=== PATIENT | male | born 1945 | race Asian ===

== ENCOUNTER 2017-08-14 05:11 | Inpatient (IN) | payer BC, OTHER ==
--- NOTE | 2017-08-14 05:45 | PDOC ---
History of Present Illness - General History Source: Patient Exam Limitations: No Limitations - History of Present Illness Initial Comments: 08/14/17 06:00 The patient is a 72 year old male with a significant past medical history of HTN , HLD, diabetes, s/p stent x 1 who presents to the ED with complaints of epigastric pain since earlier today. The patient reports epigastric pain that he describes as heartburn-like sensation for several hours. Patient also reports nausea and generalized weakness associated with present symptoms. He states he ate a normal breakfast, normal lunch, and bread for dinner. Patient notes his last bowel movement was yesterday, and normal. Denies abdominal distension or vomiting. Denies dysuria or change in urinary output. Denies fever or chills. Denies chest pain or shortness of breath. Denies any other symptoms. <Enma Jefferson - Last Filed: 08/14/17 06:00> <Arron Driscoll - Last Filed: 08/14/17 11:51> <Shari Mckeon - Last Filed: 08/14/17 21:33> - General Chief Complaint: Pain, Acute Stated Complaint: ABDOMINAL PAIN Time Seen by Provider: 08/14/17 05:23 Past History <Enma Jefferson - Last Filed: 08/14/17 06:00> <Arron Driscoll - Last Filed: 08/14/17 11:51> - Past Medical History Diabetes: Yes Disorders: Yes (bladder stone) HTN: Yes Hypercholesterolemia: Yes Thyroid Disease: No - Surgical History Orthopedic Surgery: No - Suicide/Smoking/Psychosocial Hx Smoking History: Former smoker Have you smoked in the past 12 months: No If you are a former smoker, when did you quit?: 13 years ago Information on smoking cessation initiated: No Hx Alcohol Use: No Drug/Substance Use Hx: No Substance Use Type: None <Shari Mckeon - Last Filed: 08/14/17 21:33> - Past Medical History Allergies/Adverse Reactions: Allergies Allergy/AdvReac Type Severity Reaction Status Date / Time No Known Drug Allergies Allergy Verified 08/14/17 05:28 Home Medications: Ambulatory Orders Amlodipine Besylate [Norvasc -] 10 mg PO DAILY 08/14/17 Aspirin [ASA -] 81 tablet PO DAILY 08/14/17 Atorvastatin Ca [Lipitor] 40 mg PO HS 08/14/17 Cholecalciferol (Vitamin D3) [Vitamin D3] 2,000 unit PO DAILY 08/14/17 Clopidogrel Bisulfate [Plavix -] 75 mg PO DAILY 08/14/17 Isosorbide Mononitrate [Isosorbide Mononitrate ER] 30 mg PO DAILY 08/14/17 Metformin HCl [Glucophage] 1,000 mg PO BID 08/14/17 Metoprolol Succinate [Toprol Xl -] 50 mg PO DAILY 08/14/17 Valsartan/Hydrochlorothiazide [Valsartan-Hctz 160-25 mg Tab] 1 each PO DAILY Review of Systems - Review of Systems Able to Perform ROS?: Yes Comments:: 08/14/17 06:01 CONSTITUTIONAL: + generalized weakness No reported: Fever, Chills, Diaphoresis,Malaise, Loss of Appetite HEENT: No reported: Rhinorrhea, Nasal Congestion, Throat Pain, Throat Swelling, Difficulty Swallowing, Mouth Swelling, Ear Pain, Eye Pain, Visual Changes CARDIOVASCULAR: No reported: Chest Pain, Syncope, Palpitations, Irregular Heart Rate, Lightheadedness, Peripheral Edema RESPIRATORY: No reported: Cough, Shortness of Breath, SOB with Exertion, Orthopnea, Wheezing , Stridor, Hemoptysis GASTROINTESTINAL: + epigastric pain, nausea No reported: Abdominal Distension, Vomiting, Diarrhea, Constipation, Melena, Hematochezia GENITOURINARY: No reported: Dysuria, Frequency, Urgency, Hesitancy, Flank Pain, Genital Pain MUSCULOSKELETAL: No reported: Myalgia, Arthralgia, Joint Swelling, Back pain, Neck Pain SKIN: No reported: Rash, Itching, Pallor HEMEATOLOGIC/IMMUNOLOGIC: No reported: Easy Bleeding, Easy Bruising, Lymphadenopathy, Frequent infections ENDOCRINE: No reported: Unexplained Weight Gain, Unexplained Weight Loss, Heat Intolerance , Cold Intolerance NEUROLOGIC: No reported: Headache, Focal Weakness, Paresthesias, Vertigo, Lightheadedness, Unsteady Gait, Seizure, Mental Status Changes, Incontinence PSYCHIATRIC: No reported: Anxiety, Depression All Other Systems: Reviewed and Negative <Enma Jefferson - Last Filed: 08/14/17 06:00> *Physical Exam - Vital Signs Last Vital Signs Temp Pulse Resp BP Pulse Ox 97.6 F 72 20 164/82 98 08/14/17 05:28 08/14/17 05:28 08/14/17 05:28 08/14/17 05:28 08/14/17 05:28 - Physical Exam Comments: 08/14/17 06:01 GENERAL: Well developed, well nourished. Awake and alert. No acute distress. HEENT: Normocephalic, atraumatic. PERRLA, EOMI. No conjunctival pallor. Sclera are non- icteric. Moist mucous membranes. Oropharynx is clear. NECK: Supple. Full ROM. No JVD. Carotid pulses 2+ and symmetric, without bruits. No thyromegaly. No lymphadenopathy. CARDIOVASCULAR: Regular rate and rhythm. No murmurs, rubs, or gallops. Distal pulses are 2+ and symmetric. PULMONARY: No evidence of respiratory distress. Lungs clear to auscultation bilaterally. No wheezing, rales or rhonchi. ABDOMINAL: + gassy bowel sounds Soft. Non-tender. Non-distended. No rebound or guarding. No organomegaly. MUSCULOSKELETAL Normal range of motion at all joints. No bony deformities or tenderness. No CVA tenderness. EXTREMITIES: No cyanosis. No clubbing. No edema. No calf tenderness. SKIN: Warm and dry. Normal capillary refill. No rashes. No jaundice. NEUROLOGICAL: Alert, awake, appropriate. Cranial nerves 2-12 intact. No deficits to light touch and temperature in face, upper extremities and lower extremities. No motor deficits in the in face, upper extremities and lower extremities. Normoreflexic in the upper and lower extremities. Normal speech. Toes are down- going bilaterally. Gait is normal without ataxia. PSYCHIATRIC: Cooperative. Good eye contact. Appropriate mood and affect. <Enma Jefferson - Last Filed: 08/14/17 06:00> - Vital Signs Last Vital Signs Temp Pulse Resp BP Pulse Ox 97.6 F 72 20 164/82 98 08/14/17 05:28 08/14/17 05:28 08/14/17 05:28 08/14/17 05:28 08/14/17 05:28 <Arron Driscoll - Last Filed: 08/14/17 11:51> - Vital Signs Last Vital Signs Temp Pulse Resp BP Pulse Ox 97.6 F 72 20 164/82 98 08/14/17 05:28 08/14/17 05:28 08/14/17 05:28 08/14/17 05:28 08/14/17 05:28 <LindaShari - Last Filed: 08/14/17 21:33> ED Treatment Course - LABORATORY CBC & Chemistry Diagram: 08/14/17 06:13 08/14/17 06:13 - ADDITIONAL ORDERS Additional order review: Laboratory Results 08/14/17 08/14/17 08/14/17 10:30 10:00 06:13 PT with INR INR Sodium 140 Potassium 3.7 Chloride 100 Carbon Dioxide 29 Anion Gap 11 BUN 19 H D Creatinine 1.2 D Creat Clearance w eGFR 59.68 Random Glucose 125 H D Calcium 10.4 H Total Bilirubin 0.5 D AST 24 ALT 35 Alkaline Phosphatase 78 Creatine Kinase Cancelled 403 H Creatine Kinase Index 1.7 CK-MB (CK-2) 7.210 H Troponin I Cancelled < 0.02 Total Protein 7.5 Albumin 3.9 Total Amylase 83 Lipase 180 Urine Color Straw Urine Appearance Clear Urine pH 6.0 Urine Protein Negative Urine Glucose (UA) Negative Urine Ketones Negative Urine Blood 1+ H Urine Nitrite Negative Urine Bilirubin Negative Urine Urobilinogen Negative Urine RBC None Urine WBC 1 Ur Epithelial Cells Rare Urine Mucus Rare 08/14/17 06:13 PT with INR 10.60 INR 0.94 Sodium Potassium Chloride Carbon Dioxide Anion Gap BUN Creatinine Creat Clearance w eGFR Random Glucose Calcium Total Bilirubin AST ALT Alkaline Phosphatase Creatine Kinase Creatine Kinase Index CK-MB (CK-2) Troponin I Total Protein Albumin Total Amylase Lipase Urine Color Urine Appearance Urine pH Urine Protein Urine Glucose (UA) Urine Ketones Urine Blood Urine Nitrite Urine Bilirubin Urine Urobilinogen Urine RBC Urine WBC Ur Epithelial Cells Urine Mucus 08/14/17 06:13 RBC 5.38 MCV 86.0 MCHC 33.6 RDW 14.7 MPV 6.7 L Neutrophils % 85.4 H Lymphocytes % 8.2 Monocytes % 5.7 Eosinophils % 0.2 Basophils % 0.5 - Medications Given in the ED: ED Medications Discontinued Medications Generic Name Dose Route Start Last Admin Trade Name Freq PRN Reason Stop Dose Admin Famotidine/Sodium Chloride 50 mls @ 100 mls/hr 08/14/17 05:56 08/14/17 06:39 Pepcid 20 Mg Premixed Ivpb - IVPB 08/14/17 06:25 100 mls/hr ONCE ONE Administration Morphine Sulfate 2 mg 08/14/17 05:56 08/14/17 06:39 Morphine Injection - IVPUSH 08/14/17 05:57 2 mg ONCE ONE Administration Ondansetron HCl 4 mg 08/14/17 05:56 08/14/17 06:39 Zofran Injection IVPB 08/14/17 05:57 4 mg ONCE ONE Administration Sodium Chloride 500 ml 08/14/17 05:56 08/14/17 06:39 Normal Saline - IV 08/14/17 05:57 500 ml ONCE ONE Administration - Additional Consults Time Called: 11:45 Consult/PCP: Dr. Bryant Pagan, Cardiology <Arron Driscoll - Last Filed: 08/14/17 11:51> - LABORATORY CBC & Chemistry Diagram: 08/14/17 06:13 08/14/17 06:13 <Shari Mckeon - Last Filed: 08/14/17 21:33> Medical Decision Making - Medical Decision Making 08/14/17 06:17 Pt comes with mid abd pain that bothered him since Sat evening. Kept him up all night. Pt ate only a little bread last night. Pt had a normal breakfast and lunch. Pt has no fever and no chills. Pt appears well. He has no chest pain and no back pain and he has no diaphoresis. He has HTN and DM and cardiac stents for which he takes asa and plavix. Pt will get labs and he will drink oral contrast for a CT scan of abd/ pelvis due at 8AM Pt will be signed out to the day ER time. <Shari Mckeon - Last Filed: 08/14/17 21:33> *DC/Admit/Observation/Transfer - Attestations Scribe Attestion: 08/14/17 06:01 Documentation prepared by Enma Jefferson, acting as medical investigator for Shari Mckeon MD <Enma Jefferson - Last Filed: 08/14/17 06:00> <Arron Driscoll - Last Filed: 08/14/17 11:51> <Shari Mckeon - Last Filed: 08/14/17 21:33> Diagnosis at time of Disposition: Chest pain - Referrals
[2017-08-14] MEDS ORDERED: morphine CARPU-JECT 2 MG/1 ML DISP.SYRIN IVPUSH ONE (05:56)
[2017-08-14] MEDS ORDERED: FAMOTIDINE 20 MG/50 ML IVPB 50 ML IVPB ONE ×2 (05:56→06:24)
[2017-08-14] MEDS ORDERED: SODIUM CHLORIDE 0.9% 500 ML INFUS.BAG IV ONE (05:56)
[2017-08-14] MEDS ORDERED: ONDANSETRON 4 MG/2 ML VIAL IVPB ONE (05:56)
[2017-08-14] MEDS ORDERED: morphine CARPU-JECT 2 MG/1 ML DISP.SYRIN ONE (06:23)
[2017-08-14] MEDS ORDERED: ONDANSETRON 4 MG/2 ML VIAL ONE (06:23)
[2017-08-14 06:28] LABS: BASOPHIL 0.5 % (0-2.0); EOSINOPHIL 0.2 % (0-4.5); MCH 28.9 pg (25.7-33.7); MCHC 33.6 g/dl (32.0-35.9); MEAN PLT VOLUME 6.7 fl (7.5-11.1); NEUTROPHILS 85.4 % (42.8-82.8); PLATELET COUNT 323 K/MM3 (134-434); RDW 14.7 % (11.9-15.9); WHITE BLOOD COUNT 11.1 K/mm3 (4.0-10.0)
[2017-08-14 06:41] LABS: INR 0.94 (0.82-1.09); PROTHROMBIN TIME (PATIENT) 10.6 SEC (9.98-11.88)
[2017-08-14 06:51] LABS: ALBUMIN 3.9 g/dl (3.4-5.0); ALK PHOS 78 U/L (45-117); AMYLASE 83 U/L (25-115); ANION GAP 11 (8-16); BILIRUBIN,TOTAL 0.5 mg/dL (0.2-1.0); CALCIUM 10.4 mg/dL (8.5-10.1); CO2 29 mmol/L (21-32); CREATININE 1.2 mg/dL (0.7-1.3); GLUCOSE,RANDOM 125 mg/dL (74-106); SGOT/AST 24 U/L (15-37); SGPT/ALT 35 U/L (12-78); TOT PROT 7.5 g/dl (6.4-8.2)
[2017-08-14 10:11] LABS: URINE APPEARANCE CLEAR; URINE BILIRUBIN NEGATIVE (NEGATIVE); URINE BLOOD 1+ (NEGATIVE); URINE COLOR STRAW; URINE GLUCOSE (UA) NEGATIVE (NEGATIVE); URINE KETONE NEGATIVE (NEGATIVE); URINE NITRITE NEGATIVE (NEGATIVE); URINE PROTEIN NEGATIVE (NEGATIVE); URINE UROBILINOGEN NEGATIVE mg/dL (0.2-1.0)
[2017-08-14 10:14] LABS: URINE MUCUS RARE; URINE WBC 1 /hpf (3-5)
[2017-08-14 11:07] LABS: CPK 403 IU/L (39-308); TROPONIN I < 0.02 ng/ml (0.00-0.05)
[2017-08-14] MEDS ORDERED: ASPIRIN 81 MG CHEWABLE TABLETS PO ONE (12:31)
--- NOTE | 2017-08-14 12:35 | PDOC ---
*Physical Exam - Vital Signs Last Vital Signs Temp Pulse Resp BP Pulse Ox 97.6 F 72 20 164/82 98 08/14/17 05:28 08/14/17 05:28 08/14/17 05:28 08/14/17 05:28 08/14/17 05:28 Heart Score/ECG Review - History History: Slightly suspicious - Electrocardiogram EKG: Non specific repolarization disturbance - Age Age: >/= 65 - Risk Factors Based on the list above the patient has:: >/=3 risk factors or Hx atherosclerotic disease - Troponin Troponin: </= normal limit - Score Heart Score - Total: 5 #1 ECG reviewed & interpreted by me at: 11:20 08/14/17 12:33 NSR 62, no std/jesica, T wave flat I, avL, V5-V6, QTC 379 msec ED Treatment Course - LABORATORY CBC & Chemistry Diagram: 08/14/17 06:13 08/14/17 06:13 - ADDITIONAL ORDERS Additional order review: Laboratory Results 08/14/17 08/14/17 08/14/17 10:30 10:00 06:13 PT with INR INR Sodium 140 Potassium 3.7 Chloride 100 Carbon Dioxide 29 Anion Gap 11 BUN 19 H D Creatinine 1.2 D Creat Clearance w eGFR 59.68 Random Glucose 125 H D Calcium 10.4 H Total Bilirubin 0.5 D AST 24 ALT 35 Alkaline Phosphatase 78 Creatine Kinase Cancelled 403 H Creatine Kinase Index 1.7 CK-MB (CK-2) 7.210 H Troponin I Cancelled < 0.02 Total Protein 7.5 Albumin 3.9 Total Amylase 83 Lipase 180 Urine Color Straw Urine Appearance Clear Urine pH 6.0 Urine Protein Negative Urine Glucose (UA) Negative Urine Ketones Negative Urine Blood 1+ H Urine Nitrite Negative Urine Bilirubin Negative Urine Urobilinogen Negative Urine RBC None Urine WBC 1 Ur Epithelial Cells Rare Urine Mucus Rare 08/14/17 06:13 PT with INR 10.60 INR 0.94 Sodium Potassium Chloride Carbon Dioxide Anion Gap BUN Creatinine Creat Clearance w eGFR Random Glucose Calcium Total Bilirubin AST ALT Alkaline Phosphatase Creatine Kinase Creatine Kinase Index CK-MB (CK-2) Troponin I Total Protein Albumin Total Amylase Lipase Urine Color Urine Appearance Urine pH Urine Protein Urine Glucose (UA) Urine Ketones Urine Blood Urine Nitrite Urine Bilirubin Urine Urobilinogen Urine RBC Urine WBC Ur Epithelial Cells Urine Mucus 08/14/17 06:13 RBC 5.38 MCV 86.0 MCHC 33.6 RDW 14.7 MPV 6.7 L Neutrophils % 85.4 H Lymphocytes % 8.2 Monocytes % 5.7 Eosinophils % 0.2 Basophils % 0.5 - Medications Given in the ED: ED Medications Discontinued Medications Generic Name Dose Route Start Last Admin Trade Name Judson PRN Reason Stop Dose Admin Famotidine/Sodium Chloride 50 mls @ 100 mls/hr 08/14/17 05:56 08/14/17 06:39 Pepcid 20 Mg Premixed Ivpb - IVPB 08/14/17 06:25 100 mls/hr ONCE ONE Administration Morphine Sulfate 2 mg 08/14/17 05:56 08/14/17 06:39 Morphine Injection - IVPUSH 08/14/17 05:57 2 mg ONCE ONE Administration Ondansetron HCl 4 mg 08/14/17 05:56 08/14/17 06:39 Zofran Injection IVPB 08/14/17 05:57 4 mg ONCE ONE Administration Sodium Chloride 500 ml 08/14/17 05:56 08/14/17 06:39 Normal Saline - IV 08/14/17 05:57 500 ml ONCE ONE Administration - Additional Consults Time Called: 11:45 Consult/PCP: Dr. Bryant Pagan, Cardiology Medical Decision Making - Medical Decision Making 08/14/17 12:33 Sign-out received from outgoing Emergency Physician Dr. Mckeon Pt interviewed and examined Ancillary studies reviewed Case discussed in detail with oncoming Emergency Physician including history, physical exam and ancillary studies. Labs and CT reviewed. No acute findings. I had talked with the patient. The patient was concerned for an AK given his stent history. Initial trop negative. I had spoken to Dr. Rivas (covering for Dr. olivarez) Recommends observation, serial troponins Case discussed with hospitalist. Admitted to tele obs *DC/Admit/Observation/Transfer Diagnosis at time of Disposition: Chest pain Qualifiers: Chest pain type: unspecified Qualified Code(s): R07.9 - Chest pain, unspecified ; R07.9 - Chest pain, unspecified - Discharge Dispostion Condition at time of disposition: Stable Admit: Yes - Referrals Referrals: Lyndon Lobo MD [Primary Care Provider] - - Patient Instructions - Post Discharge Activity
[2017-08-14] MEDS ORDERED: ASPIRIN COATED 81 MG TABLET.EC ONE (13:22)
--- NOTE | 2017-08-14 13:45 | HP ---
CHIEF COMPLAINT: epigastric pain, non radiating, unrelieved PCP: Dr. Alexis, manager public HISTORY OF PRESENT ILLNESS: The patient is a 72 year old male with a significant past medical history of HTN , HLD, diabetes, s/p stent x 1 who presents to the ED with complaints of epigastric pain that started 6pm yesterday and has since persisted. He describes the pain as "heart burn like burning sensation" but it does not radiate. He is concerned that it may be heart related since he has a stent and a past cardiac history but denies any chest pain or shortness of breath. Patient notes his last bowel movement was yesterday, and normal. He further denies any abdominal distension or vomiting. Denies dysuria or change in urinary output. Patient has a cardiac stents for which he takes ASA 81mg in the evenings and plavix in the a.m. ER course was notable for: (1) ASA 324mg given x 1 (2) CT chest/abd negative, no acute pathology (3) Trops negative x 2 Recent Travel: PAST MEDICAL HISTORY: PAST SURGICAL HISTORY: cardiac stent x 1 Social History: Smoking: former smoker > 10 years ago Alcohol: denies Drugs: denies Family History: Allergies No Known Drug Allergies Allergy (Verified 08/14/17 05:28) HOME MEDICATIONS: Home Medications Medication Instructions Recorded Amlodipine Besylate [Norvasc -] 10 mg PO DAILY 08/14/17 Aspirin [ASA -] 81 tablet PO DAILY 08/14/17 Atorvastatin Ca [Lipitor] 40 mg PO HS 08/14/17 Cholecalciferol (Vitamin D3) 2,000 unit PO DAILY 08/14/17 [Vitamin D3] Clopidogrel Bisulfate [Plavix -] 75 mg PO DAILY 08/14/17 Isosorbide Mononitrate [Isosorbide 30 mg PO DAILY 08/14/17 Mononitrate ER] Metformin HCl [Glucophage] 1,000 mg PO BID 08/14/17 Metoprolol Succinate [Toprol Xl -] 50 mg PO DAILY 08/14/17 Valsartan/Hydrochlorothiazide 1 each PO DAILY 08/14/17 [Valsartan-Hctz 160-25 mg Tab] REVIEW OF SYSTEMS CONSTITUTIONAL: Absent: fever, chills, diaphoresis, generalized weakness, malaise, loss of appetite, weight change HEENT: Absent: rhinorrhea, nasal congestion, throat pain, throat swelling, difficulty swallowing, mouth swelling, ear pain, eye pain, visual changes CARDIOVASCULAR: Absent: chest pain, syncope, palpitations, irregular heart rate, lightheadedness , peripheral edema RESPIRATORY: Absent: cough, shortness of breath, dyspnea with exertion, orthopnea, wheezing, stridor, hemoptysis GASTROINTESTINAL: Absent: abdominal pain, abdominal distension, nausea, vomiting, diarrhea, constipation, melena, hematochezia GENITOURINARY: Absent: dysuria, frequency, urgency, hesitancy, hematuria, flank pain, genital pain MUSCULOSKELETAL: Absent: myalgia, arthralgia, joint swelling, back pain, neck pain SKIN: Absent: rash, itching, pallor HEMATOLOGIC/IMMUNOLOGIC: Absent: easy bleeding, easy bruising, lymphadenopathy, frequent infections ENDOCRINE: Absent: unexplained weight gain, unexplained weight loss, heat intolerance, cold intolerance NEUROLOGIC: Absent: headache, focal weakness or paresthesias, dizziness, unsteady gait, seizure, mental status changes, bladder or bowel incontinence PSYCHIATRIC: Absent: anxiety, depression, suicidal or homicidal ideation, hallucinations. PHYSICAL EXAMINATION GENERAL: Awake, alert, and fully oriented, in no acute distress. HEAD: Normal with no signs of trauma. EYES: Pupils equal, round and reactive to light, extraocular movements intact, sclera anicteric, conjunctiva clear. No lid lag. EARS, NOSE, THROAT: Ears normal, nares patent, oropharynx clear without exudates. Moist mucous membranes. NECK: Normal range of motion, supple without lymphadenopathy, JVD, or masses. LUNGS: Breath sounds equal, clear to auscultation bilaterally. No wheezes, and no crackles. No accessory muscle use. HEART: Regular rate and rhythm, normal S1 and S2 without murmur, rub or gallop. ABDOMEN: Soft, nontender, not distended, normoactive bowel sounds, no guarding, no rebound, no masses. No hepatomegaly or splenomegaly. MUSCULOSKELETAL: Normal range of motion at all joints. No bony deformities or tenderness. No CVA tenderness. UPPER EXTREMITIES: 2+ pulses, warm, well-perfused. No cyanosis. No clubbing. No peripheral edema. LOWER EXTREMITIES: 2+ pulses, warm, well-perfused. No calf tenderness. No peripheral edema. NEUROLOGICAL: Cranial nerves II-XII intact. Normal speech. Normal gait. PSYCHIATRIC: Cooperative. Good eye contact. Appropriate mood and affect. SKIN: Warm, dry, normal turgor, no rashes or lesions noted, normal capillary refill. ASSESSMENT/PLAN: The patient is a 72 year old male with a significant past medical history of HTN , HLD, diabetes, s/p stent x 1 who presents to the ED with complaints of epigastric pain that started 6pm yesterday and has since persisted. He describes the pain as "heart burn like burning sensation" but it does not radiate. He is concerned that it may be heart related since he has a stent and a past cardiac history but denies any chest pain or shortness of breath. Patient notes his last bowel movement was yesterday, and normal. He further denies any abdominal distension or vomiting. Denies dysuria or change in urinary output. Patient has a cardiac stents for which he takes ASA 81mg in the evenings and plavix in the a.m. Cardiology: Abdominal Pain, Epigastric pain, rule out ACS A/P: Serial troponins, EKG Continue ASA, Plavix Cardiac monitoring Cardiology to evaluate Pepcid for epigastric pain TSH CAD/hx of cardiac stents A/P: on ASA 81mg, Plavix home dose Hyperlipidemia Lipid panel for a.m. Hypothyroidsm A/P: TSH for am. Hypertension, chronic/well controlled A/P: On home meds of Metoprolol, Norvasc, Isosorbide, Valsartan/HCTZ Continue home meds, monitor BP GI: Abdominal pain/epigastric pain, now resolved CT/abd/pelvis, no acute pathology On Pepcid Disposition. Requires observation. full code. Visit type - Emergency Visit Emergency Visit: Yes ED Registration Date: 08/14/17 Care time: The patient presented to the Emergency Department on the above date and was hospitalized for further evaluation of their emergent condition. - New Patient This patient is new to me today: Yes Date on this admission: 08/14/17 - Critical Care Critical Care patient: No
[2017-08-14 15:05] LABS: URINE LEUK ESTERASE Negative (NEGATIVE)
[2017-08-14 15:44] LABS: CPK 402 IU/L (39-308); TROPONIN I < 0.02 ng/ml (0.00-0.05)
[2017-08-14 17:00] VITALS: BMI 28.3
[2017-08-14] MEDS ORDERED: METOPROLOL SUCCINATE 50 MG TAB.SR.24H (FP) ONE (17:59)
[2017-08-14] MEDS: METOPROLOL SUCCINATE 50 MG TAB.SR.24H (FP) PO SCH (18:09)
[2017-08-15] MEDS ORDERED: ATORVASTATIN CA 40 MG TABLET (FP) ONE (00:22)
[2017-08-15] MEDS: ATORVASTATIN CA 40 MG TABLET (FP) PO SCH ×2 (00:30→22:55)
[2017-08-15] MEDS: INSULIN SLIDING SCALE (NOVOLOG) 1 VIAL SQ SCH ×5 (00:30→22:55)
[2017-08-15 07:46] LABS: BASOPHIL 0.9 % (0-2.0); EOSINOPHIL 4.9 % (0-4.5); MCH 28.8 pg (25.7-33.7); MCHC 33.4 g/dl (32.0-35.9); MEAN CELL VOLUME 86.1 fl (80-96); MEAN PLT VOLUME 6.7 fl (7.5-11.1); NEUTROPHILS 58.4 % (42.8-82.8); PLATELET COUNT 282 K/MM3 (134-434); RDW 14.6 % (11.9-15.9); WHITE BLOOD COUNT 5.9 K/mm3 (4.0-10.0)
[2017-08-15 08:13] LABS: CPK 271 IU/L (39-308); TROPONIN I < 0.02 ng/ml (0.00-0.05)
[2017-08-15 08:14] LABS: ALK PHOS 64 U/L (45-117); BILIRUBIN,TOTAL 0.7 mg/dL (0.2-1.0); CALCIUM 9.3 mg/dL (8.5-10.1); CHOLESTEROL 155 mg/dL (50-200); CO2 30 mmol/L (21-32); GLUCOSE,RANDOM 97 mg/dL (74-106); MAGNESIUM 1.8 mg/dL (1.8-2.4); TOT PROT 7.3 g/dl (6.4-8.2)
[2017-08-15 08:16] LABS: ALBUMIN 3.7 g/dl (3.4-5.0); ANION GAP 10 (8-16); CREATININE 1.1 mg/dL (0.7-1.3); SGOT/AST 23 U/L (15-37); SGPT/ALT 31 U/L (12-78)
--- NOTE | 2017-08-15 09:22 | CON.CARD ---
Consult Consult Specialty:: Cardiology Reason for Consultation:: chest pain - History of Present Illness History of Present Illness: The patient is a 72 year old male with a significant past medical history of HTN , HLD, diabetes, s/p stent x 1 who presents to the ED with complaints of epigastric pain since earlier today. The patient reports epigastric pain that he describes as heartburn-like sensation for several hours. Patient also reports nausea and generalized weakness associated with present symptoms. He states he ate a normal breakfast, normal lunch, and bread for dinner. Patient notes his last bowel movement was yesterday, and normal. Denies abdominal distension or vomiting. Denies dysuria or change in urinary output. Denies fever or chills. Denies chest pain or shortness of breath. Denies any other symptoms. [facility] coronary PCI ([facility]) of [facility] 05/2014 Ongoing medical problems arthritis (knee) DM HTN hypercholesterolemia Prostate CA unstable angina pectoris 05/2014-->[facility] of [facility] - History Source History Provided By: Patient - Alcohol/Substance Use Hx Alcohol Use: No - Smoking History Smoking history: Former smoker Have you smoked in the past 12 months: No If you are a former smoker, when did you quit?: 13 years ago Home Medications - Allergies Allergies/Adverse Reactions: Allergies Allergy/AdvReac Type Severity Reaction Status Date / Time No Known Drug Allergies Allergy Verified 08/14/17 05:28 - Home Medications Home Medications: Ambulatory Orders Amlodipine Besylate [Norvasc -] 10 mg PO DAILY 08/14/17 Aspirin [ASA -] 81 tablet PO DAILY 08/14/17 Atorvastatin Ca [Lipitor] 40 mg PO HS 08/14/17 Cholecalciferol (Vitamin D3) [Vitamin D3] 2,000 unit PO DAILY 08/14/17 Clopidogrel Bisulfate [Plavix -] 75 mg PO DAILY 08/14/17 Isosorbide Mononitrate [Isosorbide Mononitrate ER] 30 mg PO DAILY 08/14/17 Metformin HCl [Glucophage] 1,000 mg PO BID 08/14/17 Metoprolol Succinate [Toprol XL -] 50 mg PO DAILY 08/14/17 Valsartan/Hydrochlorothiazide [Valsartan-Hctz 160-25 mg Tab] 1 each PO DAILY Review of Systems - Review of Systems Constitutional: reports: No Symptoms Eyes: reports: No Symptoms HENT: reports: No Symptoms Neck: reports: No Symptoms Cardiovascular: reports: Chest Pain Respiratory: reports: SOB Gastrointestinal: reports: No Symptoms Genitourinary: reports: No Symptoms Breasts: reports: No Symptoms Reported Musculoskeletal: reports: No Symptoms Integumentary: reports: No Symptoms Neurological: reports: No Symptoms Endocrine: reports: No Symptoms Hematology/Lymphatic: reports: No Symptoms Psychiatric: reports: No Symptoms Vital Signs: Vital Signs Temperature 97.4 F L 08/15/17 07:44 Pulse Rate 60 08/15/17 07:44 Respiratory Rate 18 08/14/17 16:53 Blood Pressure 128/82 08/15/17 07:44 O2 Sat by Pulse Oximetry (%) 94 L 08/15/17 07:44 Constitutional: Yes: Well Nourished, No Distress, Calm Eyes: Yes: WNL, Conjunctiva Clear, EOM Intact HENT: Yes: WNL, Atraumatic, Normocephalic Neck: Yes: WNL, Supple, Trachea Midline Respiratory: Yes: WNL, Regular, CTA Bilaterally Gastrointestinal: Yes: WNL, Normal Bowel Sounds Renal/: Yes: WNL Cardiovascular: Yes: WNL, Regular Rate and Rhythm Musculoskeletal: Yes: WNL Extremities: Yes: WNL Integumentary: Yes: WNL Neurological: Yes: WNL, Alert, Oriented ...Motor Strength: WNL Psychiatric: Yes: WNL, Alert, Oriented - Other Data Labs, Other Data: CBC, BMP 08/15/17 06:00 08/15/17 06:00 INR, PTT INR 0.94 (0.82-1.09) 08/14/17 06:13 Troponin, BNP 08/14/17 08/14/17 08/15/17 15:00 21:30 06:00 Troponin I < 0.02 < 0.02 < 0.02 Troponin, BNP 08/14/17 08/14/17 08/15/17 15:00 21:30 06:00 Troponin I < 0.02 < 0.02 < 0.02 Imaging - Results EKG: Image Reviewed (sr rep abn) Problem List - Problems (1) Chest pain Code(s): R07.9 - CHEST PAIN, UNSPECIFIED Qualifiers: Chest pain type: unspecified Qualified Code(s): R07.9 - Chest pain, unspecified; R07.9 - Chest pain, unspecified Assessment/Plan Angina coronary PCI ([facility]) of [facility] 05/2014 Ongoing medical problems arthritis (knee) DM HTN hypercholesterolemia Prostate CA unstable angina pectoris 05/2014-->[facility] r/o [place] echo MIBI stress test
[2017-08-15] MEDS ORDERED: PATIENT'S OWN MEDICATION (NON-FORMULARY) (Valsartan/Hydrochlorothiazide [Valsartan-Hctz 16 PO SCH (10:00)
[2017-08-15] MEDS: VALSARTAN 160 MG TABLET (UD) PO SCH (10:17)
[2017-08-15] MEDS: ASPIRIN 81 MG CHEWABLE TABLETS PO SCH (10:17)
[2017-08-15] MEDS: METOPROLOL SUCCINATE 50 MG TAB.SR.24H (FP) PO SCH (10:17)
[2017-08-15] MEDS: ISOSORBIDE MONONITRATE 30 MG TAB.SR.24H (FP) PO SCH (10:17)
[2017-08-15] MEDS: HYDROCHLOROTHIAZIDE 25 MG TABLET (FP) PO SCH (10:17)
[2017-08-15] MEDS: amLODIPine BESYLATE 10 MG TABLET (FP) PO SCH (10:18)
[2017-08-15] MEDS: CLOPIDOGREL BISULFATE 75 MG TABLET (FP) PO SCH (10:18)
[2017-08-15] MEDS: CHOLECALCIFEROL (VITAMIN D3) 1,000 UNIT TABLET (FP) PO SCH (10:18)
[2017-08-15] MEDS ORDERED: POTASSIUM CHLORIDE TABS 20 MEQ TABLET.ER (FP) PO ONE (10:33)
--- NOTE | 2017-08-15 10:45 | DS ---
Physical Examination Vital Signs: Vital Signs Temperature 36.3 C L 08/15/17 07:44 Pulse Rate 60 08/15/17 07:44 Respiratory Rate 18 08/14/17 16:53 Blood Pressure 128/82 08/15/17 07:44 O2 Sat by Pulse Oximetry (%) 94 L 08/15/17 07:44 Labs: CBC, BMP 08/15/17 06:00 08/15/17 06:00 Discharge Summary Reason For Visit: ABDOMINAL PAIN Current Active Problems Chest pain (Acute) Condition: Good - Instructions Diet, Activity, Other Instructions: resume previous diet and activity Referrals: Dl Walton MD [Staff Physician] - Lyndon Lobo MD [Staff Physician] - Disposition: HOME - Home Medications Comprehensive Discharge Medication List: Ambulatory Orders Amlodipine Besylate [Norvasc -] 10 mg PO DAILY 08/14/17 Aspirin [ASA -] 81 tablet PO DAILY 08/14/17 Atorvastatin Ca [Lipitor] 40 mg PO HS 08/14/17 Cholecalciferol (Vitamin D3) [Vitamin D3] 2,000 unit PO DAILY 08/14/17 Clopidogrel Bisulfate [Plavix -] 75 mg PO DAILY 08/14/17 Isosorbide Mononitrate [Isosorbide Mononitrate ER] 30 mg PO DAILY 08/14/17 Metformin HCl [Glucophage] 1,000 mg PO BID 08/14/17 Metoprolol Succinate [Toprol XL -] 50 mg PO DAILY 08/14/17 Valsartan/Hydrochlorothiazide [Valsartan-Hctz 160-25 mg Tab] 1 each PO DAILY
--- NOTE | 2017-08-15 14:09 | PN ---
Progress Note, Physician Chief Complaint: Mr Nichole is without complaint. Denies cp, sob, n/v. Asking if can go home. - Current Medication List Current Medications: Active Medications Amlodipine Besylate (Norvasc -) 10 mg PO DAILY [facility] Last Admin: 08/15/17 10:18 Dose: 10 mg Aspirin (Asa -) 81 mg PO DAILY [facility] Last Admin: 08/15/17 10:17 Dose: 81 mg Atorvastatin Calcium (Lipitor -) 40 mg PO HS [facility] Last Admin: 08/15/17 00:30 Dose: 40 mg Cholecalciferol (Vitamin D3 -) 2,000 unit PO DAILY [facility] Last Admin: 08/15/17 10:18 Dose: 2,000 unit Clopidogrel Bisulfate (Plavix -) 75 mg PO DAILY [facility] Last Admin: 08/15/17 10:18 Dose: 75 mg Hydrochlorothiazide (Hctz -) 25 mg PO DAILY [facility] Last Admin: 08/15/17 10:17 Dose: 25 mg Insulin Aspart (Novolog Vial Sliding Scale -) 1 vial SQ ACHS [facility] PRN Reason: Protocol Last Admin: 08/15/17 12:30 Dose: Not Given Isosorbide Mononitrate (Imdur -) 30 mg PO DAILY [facility] Last Admin: 08/15/17 10:17 Dose: 30 mg Metoprolol Succinate (Toprol Xl -) 50 mg PO DAILY [facility] Last Admin: 08/15/17 10:17 Dose: 50 mg Valsartan (Diovan -) 160 mg PO DAILY [facility] Last Admin: 08/15/17 10:17 Dose: 160 mg - Objective Vital Signs: Vital Signs Temperature 36.3 C L 08/15/17 07:44 Pulse Rate 60 08/15/17 07:44 Respiratory Rate 18 08/14/17 16:53 Blood Pressure 128/82 08/15/17 07:44 O2 Sat by Pulse Oximetry (%) 94 L 08/15/17 07:44 Constitutional: Yes: Well Nourished, No Distress, Calm Cardiovascular: Yes: Regular Rate and Rhythm. No: Gallop, Murmur, Rub Respiratory: Yes: Regular, CTA Bilaterally. No: Rales, Rhonchi, Wheezes Gastrointestinal: Yes: Normal Bowel Sounds, Soft. No: Distention, Tenderness Extremities: Yes: WNL Edema: No Labs: CBC, BMP 08/15/17 06:00 08/15/17 06:00 INR, PTT INR 0.94 (0.82-1.09) 08/14/17 06:13 Problem List - Problems (1) Chest pain Assessment/Plan: -patient presents with heartburn like symptoms -concern for possible anginal equivalent -admitted under observation -cardiac enzymes x3 negative -pain now resolved -d/w cardiology, considering patient's history recommending stress test -patient unable to do as an outpatient -plan for stress test tomorrow Code(s): R07.9 - CHEST PAIN, UNSPECIFIED Qualifiers: Chest pain type: unspecified Qualified Code(s): R07.9 - Chest pain, unspecified; R07.9 - Chest pain, unspecified (2) CAD (coronary artery disease) Assessment/Plan: -cardiology following -continue aspirin, plavix, statin, imdur, valsartan, and toprol xl -stress test tomorrow Code(s): I25.10 - ATHSCL HEART DISEASE OF [place] CORONARY ARTERY W/O ANG PCTRS (3) HTN (hypertension) Assessment/Plan: -well controlled -continue amlodipine, HCTZ, valsartan, toprol xl Code(s): I10 - ESSENTIAL (PRIMARY) HYPERTENSION (4) Hypokalemia Assessment/Plan: -replace -check in am Code(s): E87.6 - HYPOKALEMIA (5) HLD (hyperlipidemia) Assessment/Plan: -continue statin Code(s): E78.5 - HYPERLIPIDEMIA, UNSPECIFIED (6) Diabetes Assessment/Plan: -holding metformin for possible cardiac catheterization -diabetic diet -FSBS and SSI Code(s): E11.9 - TYPE 2 DIABETES MELLITUS WITHOUT COMPLICATIONS
[2017-08-16] MEDS: INSULIN SLIDING SCALE (NOVOLOG) 1 VIAL SQ SCH ×4 (06:12→21:33)
--- NOTE | 2017-08-16 07:16 | EKG ---
Test Reason : Blood Pressure : / mmHG Vent. Rate : 062 BPM Atrial Rate : 062 BPM P-R Int : 160 ms QRS Dur : 098 ms QT Int : 374 ms P-R-T Axes : 045 021 -29 degrees QTc Int : 379 ms NORMAL SINUS RHYTHM NONSPECIFIC T WAVE ABNORMALITY ABNORMAL ECG WHEN COMPARED WITH ECG OF 11-JAN-2013 16:12, NO SIGNIFICANT CHANGE WAS FOUND Confirmed by VIVEK ESPINO MD ([id number]) on 08/16/2017 7:16:39 AM Referred By: Confirmed By:VIVEK ESPINO MD
[2017-08-16 08:33] LABS: ANION GAP 7 (8-16); CALCIUM 9.3 mg/dL (8.5-10.1); CO2 31 mmol/L (21-32); CREATININE 1.2 mg/dL (0.7-1.3); GLUCOSE,RANDOM 126 mg/dL (74-106); MAGNESIUM 1.9 mg/dL (1.8-2.4)
--- NOTE | 2017-08-16 12:38 | PN ---
Progress Note, Physician Chief Complaint: Pt awaits stress treadmill MIBI; no chest pain or palpitations; not short of breath; anxious. History of Present Illness: The patient is a 72 year old male (bharathi Bro) with a significant past medical history of HTN, HLD, diabetes, CAD (admitted to a [facility] 04/2014 for chest pain--> coronary angiogram showing multivessel disease, and requiring placement of GABRIELLA stent of OM2, anxiety, chronic bilateral knee pain/disease, who presents to the ED with complaints of epigastric pain since earlier today. The patient reports epigastric pain that he describes as heartburn-like sensation for several hours. Patient also reports nausea and generalized weakness associated with present symptoms. He states he ate a normal breakfast, normal lunch, and bread for dinner. Patient notes his last bowel movement was yesterday, and normal. Denies abdominal distension or vomiting. Denies dysuria or change in urinary output. Denies fever or chills. Denies chest pain or shortness of breath. Denies any other symptoms. - Current Medication List Current Medications: Active Medications Amlodipine Besylate (Norvasc -) 10 mg PO DAILY [facility] Last Admin: 08/15/17 10:18 Dose: 10 mg Aspirin (Asa -) 81 mg PO DAILY [facility] Last Admin: 08/15/17 10:17 Dose: 81 mg Atorvastatin Calcium (Lipitor -) 40 mg PO HS [facility] Last Admin: 08/15/17 22:55 Dose: 40 mg Cholecalciferol (Vitamin D3 -) 2,000 unit PO DAILY [facility] Last Admin: 08/15/17 10:18 Dose: 2,000 unit Clopidogrel Bisulfate (Plavix -) 75 mg PO DAILY [facility] Last Admin: 08/15/17 10:18 Dose: 75 mg Hydrochlorothiazide (Hctz -) 25 mg PO DAILY [facility] Last Admin: 08/15/17 10:17 Dose: 25 mg Insulin Aspart (Novolog Vial Sliding Scale -) 1 vial SQ ACHS [facility] PRN Reason: Protocol Last Admin: 08/16/17 06:12 Dose: Not Given Isosorbide Mononitrate (Imdur -) 30 mg PO DAILY [facility] Last Admin: 08/15/17 10:17 Dose: 30 mg Metoprolol Succinate (Toprol Xl -) 50 mg PO DAILY [facility] Last Admin: 08/15/17 10:17 Dose: 50 mg Valsartan (Diovan -) 160 mg PO DAILY [facility] Last Admin: 08/15/17 10:17 Dose: 160 mg - Objective Vital Signs: Vital Signs Temperature 98 F 08/16/17 08:44 Pulse Rate 83 08/16/17 08:44 Respiratory Rate 16 08/16/17 08:44 Blood Pressure 128/71 08/16/17 08:44 O2 Sat by Pulse Oximetry (%) 97 08/15/17 21:00 Constitutional: Yes: Anxious Eyes: Yes: WNL HENT: Yes: WNL Neck: Yes: WNL Cardiovascular: Yes: WNL Respiratory: Yes: WNL Gastrointestinal: Yes: Soft ...Rectal Exam: Yes: Deferred Genitourinary: Yes: Anuria Musculoskeletal: Yes: Joint Stiffness (knees) Extremities: Yes: WNL Edema: No Peripheral Pulses WNL: Yes Integumentary: Yes: WNL Neurological: Yes: WNL Labs: CBC, BMP 08/15/17 06:00 08/16/17 08:12 INR, PTT INR 0.94 (0.82-1.09) 08/14/17 06:13 Abnormal Lab Results 08/16/17 08:12 Anion Gap 7 L BUN 19 H D Random Glucose 126 H D - ....Imaging Other: Image Reviewed (telemetry: NSR; no arrhytymias) Problem List - Problems (1) CAD (coronary artery disease) Assessment/Plan: continue ASA and clopidogrel, statin. Awaits stress MIBI. Addendum:+stress MIBI + for small-moderate area of mildly intense inferolateral ischemia; walked 7:51 seconds using Semaj protocol. He agrees to undergo coronary agngiogram at [facility] tomorrow. Code(s): I25.10 - ATHSCL HEART DISEASE OF [place] CORONARY ARTERY W/O ANG PCTRS (2) Chest pain Assessment/Plan: chest pressure similar to that experienced 2014, when a DEStent was required. Code(s): R07.9 - CHEST PAIN, UNSPECIFIED Qualifiers: Qualified Code(s): I20.0 - Unstable angina; I20.0 - Unstable angina; I20.0 - Unstable angina; I20.0 - Unstable angina (3) Diabetes Code(s): E11.9 - TYPE 2 DIABETES MELLITUS WITHOUT COMPLICATIONS (4) HLD (hyperlipidemia) Code(s): E78.5 - HYPERLIPIDEMIA, UNSPECIFIED (5) HTN (hypertension) Code(s): I10 - ESSENTIAL (PRIMARY) HYPERTENSION
[2017-08-16] MEDS: METOPROLOL SUCCINATE 50 MG TAB.SR.24H (FP) PO SCH (15:50)
[2017-08-16] MEDS: CHOLECALCIFEROL (VITAMIN D3) 1,000 UNIT TABLET (FP) PO SCH (15:50)
[2017-08-16] MEDS: ISOSORBIDE MONONITRATE 30 MG TAB.SR.24H (FP) PO SCH (15:50)
[2017-08-16] MEDS: CLOPIDOGREL BISULFATE 75 MG TABLET (FP) PO SCH (15:50)
[2017-08-16] MEDS: VALSARTAN 160 MG TABLET (UD) PO SCH (15:50)
[2017-08-16] MEDS: ASPIRIN 81 MG CHEWABLE TABLETS PO SCH (15:50)
[2017-08-16] MEDS: amLODIPine BESYLATE 10 MG TABLET (FP) PO SCH (15:50)
[2017-08-16] MEDS: HYDROCHLOROTHIAZIDE 25 MG TABLET (FP) PO SCH (15:50)
--- NOTE | 2017-08-16 15:53 | PN ---
Progress Note, Physician Chief Complaint: Mr Nichole says he is doing well. Denies cp, sob, n/v. No further abdominal pain. - Current Medication List Current Medications: Active Medications Amlodipine Besylate (Norvasc -) 10 mg PO DAILY [facility] Last Admin: 08/16/17 15:50 Dose: 10 mg Aspirin (Asa -) 81 mg PO DAILY [facility] Last Admin: 08/16/17 15:50 Dose: 81 mg Atorvastatin Calcium (Lipitor -) 40 mg PO HS [facility] Last Admin: 08/15/17 22:55 Dose: 40 mg Cholecalciferol (Vitamin D3 -) 2,000 unit PO DAILY [facility] Last Admin: 08/16/17 15:50 Dose: 2,000 unit Clopidogrel Bisulfate (Plavix -) 75 mg PO DAILY [facility] Last Admin: 08/16/17 15:50 Dose: 75 mg Hydrochlorothiazide (Hctz -) 25 mg PO DAILY [facility] Last Admin: 08/16/17 15:50 Dose: 25 mg Insulin Aspart (Novolog Vial Sliding Scale -) 1 vial SQ ACHS [facility] PRN Reason: Protocol Last Admin: 08/16/17 11:00 Dose: Not Given Isosorbide Mononitrate (Imdur -) 30 mg PO DAILY [facility] Last Admin: 08/16/17 15:50 Dose: 30 mg Metoprolol Succinate (Toprol Xl -) 50 mg PO DAILY [facility] Last Admin: 08/16/17 15:50 Dose: 50 mg Valsartan (Diovan -) 160 mg PO DAILY [facility] Last Admin: 08/16/17 15:50 Dose: 160 mg - Objective Vital Signs: Vital Signs Temperature 36.6 C 08/16/17 15:22 Pulse Rate 65 08/16/17 15:22 Respiratory Rate 16 08/16/17 15:22 Blood Pressure 153/80 08/16/17 15:22 O2 Sat by Pulse Oximetry (%) 97 08/15/17 21:00 Constitutional: Yes: Well Nourished, No Distress, Calm Cardiovascular: Yes: Regular Rate and Rhythm. No: Gallop, Murmur, Rub Respiratory: Yes: Regular, CTA Bilaterally. No: Rales, Rhonchi, Wheezes Gastrointestinal: Yes: Normal Bowel Sounds, Soft. No: Distention, Tenderness Extremities: Yes: WNL Edema: No Labs: CBC, BMP 08/15/17 06:00 08/16/17 08:12 INR, PTT INR 0.94 (0.82-1.09) 08/14/17 06:13 Problem List - Problems (1) Chest pain Code(s): R07.9 - CHEST PAIN, UNSPECIFIED Qualifiers: Chest pain type: chest pain due to myocardial ischemia Ischemic chest pain type: unstable angina pectoris Qualified Code(s): I20.0 - Unstable angina; I20.0 - Unstable angina; I20.0 - Unstable angina; I20.0 - Unstable angina (2) CAD (coronary artery disease) Code(s): I25.10 - ATHSCL HEART DISEASE OF [place] CORONARY ARTERY W/O ANG PCTRS (3) HTN (hypertension) Code(s): I10 - ESSENTIAL (PRIMARY) HYPERTENSION (4) Hypokalemia Code(s): E87.6 - HYPOKALEMIA (5) HLD (hyperlipidemia) Code(s): E78.5 - HYPERLIPIDEMIA, UNSPECIFIED (6) Diabetes Code(s): E11.9 - TYPE 2 DIABETES MELLITUS WITHOUT COMPLICATIONS Assessment/Plan (1) Chest pain Assessment/Plan: -patient with positive stress test -case d/w Dr Walton -will need cath Code(s): R07.9 - CHEST PAIN, UNSPECIFIED Qualifiers: Chest pain type: unspecified Qualified Code(s): R07.9 - Chest pain, unspecified; R07.9 - Chest pain, unspecified (2) CAD (coronary artery disease) Assessment/Plan: -cardiology following -continue aspirin, plavix, statin, imdur, valsartan, and toprol xl -needs cath Code(s): I25.10 - ATHSCL HEART DISEASE OF [place] CORONARY ARTERY W/O ANG PCTRS (3) HTN (hypertension) Assessment/Plan: -well controlled -continue amlodipine, HCTZ, valsartan, toprol xl Code(s): I10 - ESSENTIAL (PRIMARY) HYPERTENSION (4) Hypokalemia Assessment/Plan: -replaced Code(s): E87.6 - HYPOKALEMIA (5) HLD (hyperlipidemia) Assessment/Plan: -continue statin Code(s): E78.5 - HYPERLIPIDEMIA, UNSPECIFIED (6) Diabetes Assessment/Plan: -holding metformin for cardiac catheterization -diabetic diet -FSBS and SSI Code(s): E11.9 - TYPE 2 DIABETES MELLITUS WITHOUT COMPLICATIONS
[2017-08-16] MEDS: ATORVASTATIN CA 40 MG TABLET (FP) PO SCH (21:33)
[2017-08-17] MEDS: INSULIN SLIDING SCALE (NOVOLOG) 1 VIAL SQ SCH ×4 (05:31→21:14)
[2017-08-17] MEDS ORDERED: PT OWN MED DRAWER 7, Y5N ONE (09:18)
[2017-08-17] MEDS: METOPROLOL SUCCINATE 50 MG TAB.SR.24H (FP) PO SCH (09:22)
[2017-08-17] MEDS: VALSARTAN 160 MG TABLET (UD) PO SCH (09:22)
[2017-08-17] MEDS: ASPIRIN 81 MG CHEWABLE TABLETS PO SCH (09:22)
[2017-08-17] MEDS: CHOLECALCIFEROL (VITAMIN D3) 1,000 UNIT TABLET (FP) PO SCH (09:23)
[2017-08-17] MEDS: CLOPIDOGREL BISULFATE 75 MG TABLET (FP) PO SCH (09:24)
[2017-08-17] MEDS: HYDROCHLOROTHIAZIDE 25 MG TABLET (FP) PO SCH (09:24)
[2017-08-17] MEDS: ISOSORBIDE MONONITRATE 30 MG TAB.SR.24H (FP) PO SCH (09:24)
[2017-08-17] MEDS: amLODIPine BESYLATE 10 MG TABLET (FP) PO SCH (09:25)
--- NOTE | 2017-08-17 10:19 | PN ---
Progress Note, Physician History of Present Illness: The patient is a 72 year old male with a significant past medical history of HTN , HLD, diabetes, s/p stent x 1 who presents to the ED with complaints of epigastric pain since earlier today. The patient reports epigastric pain that he describes as heartburn-like sensation for several hours. Patient also reports nausea and generalized weakness associated with present symptoms. He states he ate a normal breakfast, normal lunch, and bread for dinner. Patient notes his last bowel movement was yesterday, and normal. Denies abdominal distension or vomiting. Denies dysuria or change in urinary output. Denies fever or chills. Denies chest pain or shortness of breath. Denies any other symptoms. [facility] coronary PCI (GABRIELLA) of [facility] 05/2014 Ongoing medical problems arthritis (knee) DM HTN hypercholesterolemia Prostate CA unstable angina pectoris 05/2014-->GABRIELLA of [facility] - Current Medication List Current Medications: Active Medications Amlodipine Besylate (Norvasc -) 10 mg PO DAILY [facility]S [facility] Last Admin: 08/17/17 09:25 Dose: 10 mg Aspirin (Asa -) 81 mg PO DAILY [facility] B[facility]S [facility] Last Admin: 08/17/17 09:22 Dose: 81 mg Atorvastatin Calcium (Lipitor -) 40 mg PO HS [facility] 234 BEDS [facility] Last Admin: 08/16/17 21:33 Dose: 40 mg Cholecalciferol (Vitamin D3 -) 2,000 unit PO DAILY [facility] B[facility]S [facility] Last Admin: 08/17/17 09:23 Dose: 2,000 unit Clopidogrel Bisulfate (Plavix -) 75 mg PO DAILY [facility] 234 B[facility]S [facility] Last Admin: 08/17/17 09:24 Dose: 75 mg Hydrochlorothiazide (Hctz -) 25 mg PO DAILY [facility] B[facility]S [facility] Last Admin: 08/17/17 09:24 Dose: 25 mg Insulin Aspart (Novolog Vial Sliding Scale -) 1 vial SQ ACHS [facility] B[facility]S [facility] PRN Reason: Protocol Last Admin: 08/17/17 06:44 Dose: Not Given Isosorbide Mononitrate (Imdur -) 30 mg PO DAILY [facility] B[facility]S [facility] Last Admin: 08/17/17 09:24 Dose: 30 mg Metoprolol Succinate (Toprol Xl -) 50 mg PO DAILY [facility] 234 BEDS [facility] Last Admin: 08/17/17 09:22 Dose: 50 mg Valsartan (Diovan -) 160 mg PO DAILY [facility] B[facility]S [facility] Last Admin: 08/17/17 09:22 Dose: 160 mg - Objective Vital Signs: Vital Signs Temperature 98.2 F 08/17/17 06:00 Pulse Rate 59 L 08/17/17 06:00 Respiratory Rate 16 08/17/17 06:00 Blood Pressure 124/64 08/17/17 06:00 O2 Sat by Pulse Oximetry (%) 93 L 08/16/17 21:00 Eyes: Yes: WNL, Conjunctiva Clear, EOM Intact HENT: Yes: WNL, Atraumatic, Normocephalic Neck: Yes: WNL, Supple, Trachea Midline Cardiovascular: Yes: WNL, Regular Rate and Rhythm Respiratory: Yes: WNL, Regular, CTA Bilaterally Gastrointestinal: Yes: WNL, Normal Bowel Sounds Genitourinary: Yes: WNL Musculoskeletal: Yes: WNL Extremities: Yes: WNL Edema: No Integumentary: Yes: WNL Neurological: Yes: WNL, Alert, Oriented ...Motor Strength: WNL Psychiatric: Yes: WNL Labs: INR, PTT INR 0.94 (0.82-1.09) 08/14/17 06:13 Problem List - Problems (1) Chest pain Code(s): R07.9 - CHEST PAIN, UNSPECIFIED Qualifiers: Qualified Code(s): I20.0 - Unstable angina; I20.0 - Unstable angina; I20.0 - Unstable angina; I20.0 - Unstable angina Assessment/Plan - Problems (1) CAD (coronary artery disease) Assessment/Plan: continue ASA and clopidogrel, statin. Awaits stress MIBI. Addendum:+stress MIBI + for small-moderate area of mildly intense inferolateral ischemia; walked 7:51 seconds using Semaj protocol. He agrees to undergo coronary agngiogram at [facility] tomorrow. Code(s): I25.10 - ATHSCL HEART DISEASE OF [place] CORONARY ARTERY W/O ANG PCTRS (2) Chest pain Assessment/Plan: chest pressure similar to that experienced 2014, when a DEStent was required. Code(s): R07.9 - CHEST PAIN, UNSPECIFIED Qualifiers: Qualified Code(s): I20.0 - Unstable angina; I20.0 - Unstable angina; I20.0 - Unstable angina; I20.0 - Unstable angina (3) Diabetes Code(s): E11.9 - TYPE 2 DIABETES MELLITUS WITHOUT COMPLICATIONS (4) HLD (hyperlipidemia) Code(s): E78.5 - HYPERLIPIDEMIA, UNSPECIFIED (5) HTN (hypertension) Code(s): I10 - ESSENTIAL (PRIMARY) HYPERTENSION
--- NOTE | 2017-08-17 12:16 | PN ---
Progress Note, Physician Chief Complaint: Mr Nichole says he is doing well. Denies cp, sob, n/v. Says he is bored and wants to get the cath over with - Current Medication List Current Medications: Active Medications Amlodipine Besylate (Norvasc -) 10 mg PO DAILY [facility] Last Admin: 08/17/17 09:25 Dose: 10 mg Aspirin (Asa -) 81 mg PO DAILY [facility] Last Admin: 08/17/17 09:22 Dose: 81 mg Atorvastatin Calcium (Lipitor -) 40 mg PO HS [facility] Last Admin: 08/16/17 21:33 Dose: 40 mg Cholecalciferol (Vitamin D3 -) 2,000 unit PO DAILY [facility] Last Admin: 08/17/17 09:23 Dose: 2,000 unit Clopidogrel Bisulfate (Plavix -) 75 mg PO DAILY [facility] Last Admin: 08/17/17 09:24 Dose: 75 mg Hydrochlorothiazide (Hctz -) 25 mg PO DAILY [facility] Last Admin: 08/17/17 09:24 Dose: 25 mg Insulin Aspart (Novolog Vial Sliding Scale -) 1 vial SQ ACHS [facility] PRN Reason: Protocol Last Admin: 08/17/17 12:03 Dose: 2 unit Isosorbide Mononitrate (Imdur -) 30 mg PO DAILY [facility] Last Admin: 08/17/17 09:24 Dose: 30 mg Metoprolol Succinate (Toprol Xl -) 50 mg PO DAILY [facility] Last Admin: 08/17/17 09:22 Dose: 50 mg Valsartan (Diovan -) 160 mg PO DAILY [facility] Last Admin: 08/17/17 09:22 Dose: 160 mg - Objective Vital Signs: Vital Signs Temperature 36.5 C 08/17/17 10:00 Pulse Rate 62 08/17/17 10:00 Respiratory Rate 16 08/17/17 10:00 Blood Pressure 135/67 08/17/17 10:00 O2 Sat by Pulse Oximetry (%) 93 L 08/16/17 21:00 Constitutional: Yes: Well Nourished, No Distress, Calm Cardiovascular: Yes: Regular Rate and Rhythm. No: Gallop, Murmur, Rub Respiratory: Yes: Regular, CTA Bilaterally. No: Rales, Rhonchi, Wheezes Gastrointestinal: Yes: Normal Bowel Sounds, Soft. No: Distention, Tenderness Extremities: Yes: WNL Edema: No Labs: INR, PTT INR 0.94 (0.82-1.09) 08/14/17 06:13 Problem List - Problems (1) Chest pain Code(s): R07.9 - CHEST PAIN, UNSPECIFIED Qualifiers: Qualified Code(s): I20.0 - Unstable angina; I20.0 - Unstable angina; I20.0 - Unstable angina; I20.0 - Unstable angina (2) CAD (coronary artery disease) Code(s): I25.10 - ATHSCL HEART DISEASE OF [place] CORONARY ARTERY W/O ANG PCTRS (3) HTN (hypertension) Code(s): I10 - ESSENTIAL (PRIMARY) HYPERTENSION (4) Hypokalemia Code(s): E87.6 - HYPOKALEMIA (5) HLD (hyperlipidemia) Code(s): E78.5 - HYPERLIPIDEMIA, UNSPECIFIED (6) Diabetes Code(s): E11.9 - TYPE 2 DIABETES MELLITUS WITHOUT COMPLICATIONS Assessment/Plan (1) Chest pain Assessment/Plan: -patient with positive stress test -case d/w Dr Walton -planning for transfer for cath Code(s): R07.9 - CHEST PAIN, UNSPECIFIED Qualifiers: Chest pain type: unspecified Qualified Code(s): R07.9 - Chest pain, unspecified; R07.9 - Chest pain, unspecified (2) CAD (coronary artery disease) Assessment/Plan: -cardiology following -continue aspirin, plavix, statin, imdur, valsartan, and toprol xl -as above Code(s): I25.10 - ATHSCL HEART DISEASE OF [place] CORONARY ARTERY W/O ANG PCTRS (3) HTN (hypertension) Assessment/Plan: -well controlled -continue amlodipine, HCTZ, valsartan, toprol xl Code(s): I10 - ESSENTIAL (PRIMARY) HYPERTENSION (4) Hypokalemia Assessment/Plan: -replaced Code(s): E87.6 - HYPOKALEMIA (5) HLD (hyperlipidemia) Assessment/Plan: -continue statin Code(s): E78.5 - HYPERLIPIDEMIA, UNSPECIFIED (6) Diabetes Assessment/Plan: -holding metformin for cardiac catheterization -diabetic diet -FSBS and SSI Code(s): E11.9 - TYPE 2 DIABETES MELLITUS WITHOUT COMPLICATIONS
[2017-08-17] MEDS: ATORVASTATIN CA 40 MG TABLET (FP) PO SCH (21:14)
[2017-08-18 01:14] VITALS: BP 138/83; PULSE 66; TEMP 98.1
--- NOTE | 2017-08-18 11:34 | DS ---
Physical Examination Vital Signs: Vital Signs Temperature 36.7 C 08/17/17 20:30 Pulse Rate 66 08/17/17 20:30 Respiratory Rate 18 08/17/17 20:30 Blood Pressure 138/83 08/17/17 20:30 O2 Sat by Pulse Oximetry (%) 95 08/17/17 20:30 Discharge Summary Reason For Visit: CHEST PAIN Current Active Problems CAD (coronary artery disease) (Acute) Chest pain (Acute) Diabetes (Acute) HLD (hyperlipidemia) (Acute) HTN (hypertension) (Acute) Hypokalemia (Acute) Condition: Good - Instructions Diet, Activity, Other Instructions: resume previous diet and activity Referrals: Dl Walton MD [Staff Physician] - Lyndon Lobo MD [Staff Physician] - Disposition: TRANSFER ACUTE CARE/OTHER HOSP - Home Medications Comprehensive Discharge Medication List: Ambulatory Orders Amlodipine Besylate [Norvasc -] 10 mg PO DAILY 08/14/17 Aspirin [ASA -] 81 tablet PO DAILY 08/14/17 Atorvastatin Ca [Lipitor] 40 mg PO HS 08/14/17 Cholecalciferol (Vitamin D3) [Vitamin D3] 2,000 unit PO DAILY 08/14/17 Clopidogrel Bisulfate [Plavix -] 75 mg PO DAILY 08/14/17 Isosorbide Mononitrate [Isosorbide Mononitrate ER] 30 mg PO DAILY 08/14/17 Metformin HCl [Glucophage] 1,000 mg PO BID 08/14/17 Metoprolol Succinate [Toprol XL -] 50 mg PO DAILY 08/14/17 Valsartan/Hydrochlorothiazide [Valsartan-Hctz 160-25 mg Tab] 1 each PO DAILY
== END 2017-08-17 22:11 | disposition short-term general hospital (02) | DRG 303 ==
LOC: JER 05:11 → JERBED 12:57 → J4S 08-15 16:01 → OBSVTOIN 08-16 15:52
PROVIDERS: ADMIT Internal Medicine; ATTEND Internal Medicine
DX: I25.110 Atherosclerotic heart disease of native coronary artery with unstable angina pectoris (principal); I10 Essential (primary) hypertension; E11.9 Type 2 diabetes mellitus without complications; E03.9 Hypothyroidism, unspecified; M13.869 Other specified arthritis, unspecified knee; E87.6 Hypokalemia; Z85.46 Personal history of malignant neoplasm of prostate; Z87.891 Personal history of nicotine dependence; Z95.5 Presence of coronary angioplasty implant and graft
CPT/HCPCS: 36415; 74176-TC; 78452-TC; 80048; 80053; 80061; 81003; 81015; 82150; 82550; 82553; 83036; 83690; 83721; 83735; 84484; 85025; 85610; 87086; 93005; 93010; 93017; 99283-25; A9502; G0378; Q9967